=== PATIENT | female | born 1975 | race Caucasian/White ===

== ENCOUNTER 2021-10-14 08:42 | Outpatient (CLI) | payer OTHER | END 2021-10-14 08:43 | disposition home or self-care (01) | LOC: CSHCT 08:42 | PROVIDERS: ATTEND Physician Assistant Medical | DX: R10.32 Left lower quadrant pain (principal); R10.33 Periumbilical pain; R19.7 Diarrhea, unspecified; K76.9 Liver disease, unspecified; Z98.890 Other specified postprocedural states | CPT/HCPCS: 74177 ==

== ENCOUNTER 2021-10-21 14:18 | Outpatient (CLI) | payer OTHER | END 2021-10-21 14:19 | disposition home or self-care (01) | LOC: CSHMRI 14:18 | PROVIDERS: ATTEND Physician Assistant Medical | DX: K76.9 Liver disease, unspecified (principal); D18.00 Hemangioma unspecified site; R16.0 Hepatomegaly, not elsewhere classified | CPT/HCPCS: 74183 ==

== ENCOUNTER 2022-12-10 10:41 | Observation (INO) | payer BC, OTHER ==
[~2022-12-10 10:41] MED LIST: Iopamidol 300 61% 100 ML VIAL FS ONE
[2022-12-10] MEDS ORDERED: Morphine 4 MG/ML VIAL ONE ×3 (11:00→18:10)
[2022-12-10] MEDS ORDERED: Promethazine HCl 25 MG/ML VIAL ONE ×2 (11:01→18:10)
[2022-12-10 11:23] LABS: ALT (SGPT) 13 U/L (8-55); AST (SGOT) 18 U/L (5-34); Albumin 4.6 g/dL (3.5-5.0); Alkaline Phosphatase 62 U/L (40-110); Anion Gap 15 mmol/L (10-20); BUN (Urea Nitrogen) 13 mg/dL (7.0-18.7); Bilirubin, Total 0.8 mg/dL (0.2-1.2); Calc. Creatinine Clearance 0 mL/min (70-130); Calcium 9.7 mg/dL (7.8-10.44); Carbon Dioxide 27 mmol/L (22-29); Chloride 103 mmol/L (98-107); Estimated GFR 86; Globulin 2.8 g/dL (2.4-3.5); Glucose 99 mg/dL (70-105); Lipase 16 U/L (8-78); Potassium 3.6 mmol/L (3.5-5.1); Protein, Total 7.4 g/dL (6.0-8.3); Sodium 141 mmol/L (136-145)
[2022-12-10 11:35] LABS: #Eosinphils 0.1 10x3/uL (0.0-0.5); #Monocytes 0.5 10x3/uL (0.0-1.1); #Neutrophils 10.7 10x3/uL (1.5-8.4); %Basophils 0.3 % (0.0-2.0); %Eosinophils 0.8 % (0.0-6.0); %Lymphocytes 4.1 % (18.0-47.0); %Monocytes 3.9 % (0.0-10.0); %Neutrophils 90.6 % (40.0-75.0); Hemoglobin 14.1 g/dL (12.0-15.5); Mean Corpuscular HGB CONC 33.5 g/dL (32.0-36.0); Mean Corpuscular Hemoglobin 31.6 pg (27.0-33.0); Mean Corpuscular Volume 94.4 fl (81.6-98.3); Mean Platelet Volume 11.2 fl (7.4-10.4); Platelet Count 237 10x3/uL (150-450); RBC Distribution Width 12.4 % (11.5-14.5); Red Blood Cell (RBC) Count 4.46 10x6/uL (3.90-5.03); White Blood Cell (WBC) Count 11.8 10x3/uL (3.5-10.5)
[2022-12-10] MEDS ORDERED: Ketorolac Tromethamine 30 MG/ML VIAL ONE (13:11)
[2022-12-10 13:41] LABS: Bilirubin Neg (Negative); Blood, Urine 25 (Negative); Clarity Clear (Clear); Glucose, Urine (Dipstick) Normal (Negative); Ketone, Urine 15 mg/dL (Negative); Leukocyte Negative (Negative); Nitrite Negative (Negative); Protein, Urine (Dipstick) Negative (Neg-Trace); Specific Gravity, Urine 1.005 (1.005-1.030); Urobilinogen Normal mg/dL (Less than 2)
[2022-12-10 13:48] LABS: Bacteria/HPF None Seen HPF (None Seen); RBC/HPF 0-3 HPF (0-3); Squamous Epithelial 0-3 HPF (0-3); WBC/HPF None Seen HPF (0-3)
[2022-12-10] MEDS ORDERED: Ondansetron PF 4 MG/2 ML Vial ONE (15:18)
[2022-12-10] MEDS ORDERED: Electrolyte Replacement Protocol 1 EACH FS SCH (15:45)
[2022-12-10] MEDS ORDERED: Acetaminophen 325 MG TAB PO PRN (15:46)
[2022-12-10] MEDS ORDERED: Ondansetron ODT 4 MG TAB PO PRN (15:46)
[2022-12-10 16:17] LABS: Magnesium 2.1 mg/dL (1.6-2.6)
[2022-12-10 17:20] LABS: SARS-CoV-2 NAA Rapid Test Not Detected (NotDetected)
[2022-12-10] MEDS ORDERED: Piperacillin/Tazobactam 3.375 GM in Sodium Chloride 0.9% 100 ML IVPB SCH (18:00)
[2022-12-10] MEDS: Morphine 2 MG/ML VIAL SLOW IVP PRN (22:54)
[2022-12-10] MEDS: HYDROcodone/Acetaminophen 5/325 mg Tablet PO PRN (22:55)
[2022-12-10] MEDS: D5 1/2 NS w/20 mEq KCL 1,000 ML IV SCH (23:06)
[2022-12-11] MEDS: D5 1/2 NS w/20 mEq KCL 1,000 ML IV SCH ×4 (00:09→23:06)
[2022-12-11] MEDS: Piperacillin/Tazobactam 3.375 GM in Sodium Chloride 0.9% 100 ML IVPB SCH ×4 (00:09→22:52)
[2022-12-11] MEDS: HYDROcodone/Acetaminophen 5/325 mg Tablet PO PRN ×3 (04:20→20:52)
[2022-12-11] MEDS: Morphine 2 MG/ML VIAL SLOW IVP PRN ×4 (04:49→22:52)
[2022-12-11 05:23] VITALS: BMI 35.2
[2022-12-11 05:34] LABS: #Eosinphils 0.1 10x3/uL (0.0-0.5); #Monocytes 0.4 10x3/uL (0.0-1.1); %Basophils 0.5 % (0.0-2.0); %Eosinophils 2.2 % (0.0-6.0); %Lymphocytes 14.5 % (18.0-47.0); %Monocytes 9.7 % (0.0-10.0); %Neutrophils 72.9 % (40.0-75.0); Hemoglobin 10.7 g/dL (12.0-15.5); Mean Corpuscular HGB CONC 32.4 g/dL (32.0-36.0); Mean Corpuscular Hemoglobin 31.2 pg (27.0-33.0); Mean Corpuscular Volume 96.2 fl (81.6-98.3); Mean Platelet Volume 11.1 fl (7.4-10.4); Platelet Count 157 10x3/uL (150-450); RBC Distribution Width 12.8 % (11.5-14.5); Red Blood Cell (RBC) Count 3.43 10x6/uL (3.90-5.03); White Blood Cell (WBC) Count 4.1 10x3/uL (3.5-10.5)
[2022-12-11 06:02] LABS: Anion Gap 11 mmol/L (10-20); BUN (Urea Nitrogen) 10 mg/dL (7.0-18.7); Calc. Creatinine Clearance 132 mL/min (70-130); Calcium 8.2 mg/dL (7.8-10.44); Carbon Dioxide 26 mmol/L (22-29); Chloride 106 mmol/L (98-107); Estimated GFR 94; Glucose 99 mg/dL (70-105); Potassium 3.9 mmol/L (3.5-5.1); Sodium 139 mmol/L (136-145)
[2022-12-11] MEDS: Ondansetron PF 4 MG/2 ML Vial IVP PRN ×2 (12:09→17:31)
[2022-12-11] MEDS ORDERED: Ketorolac Tromethamine 30 MG/ML VIAL IVP SCH (13:30)
[2022-12-11 15:37] LABS: #Eosinphils 0.1 10x3/uL (0.0-0.5); #Monocytes 0.3 10x3/uL (0.0-1.1); #Neutrophils 1.3 10x3/uL (1.5-8.4); %Basophils 0.8 % (0.0-2.0); %Lymphocytes 31.1 % (18.0-47.0); %Monocytes 12.4 % (0.0-10.0); %Neutrophils 51.3 % (40.0-75.0); Hemoglobin 10.8 g/dL (12.0-15.5); Mean Corpuscular HGB CONC 32.8 g/dL (32.0-36.0); Mean Corpuscular Hemoglobin 31.7 pg (27.0-33.0); Mean Corpuscular Volume 96.5 fl (81.6-98.3); Mean Platelet Volume 11.7 fl (7.4-10.4); Platelet Count 160 10x3/uL (150-450); RBC Distribution Width 12.6 % (11.5-14.5); Red Blood Cell (RBC) Count 3.41 10x6/uL (3.90-5.03); White Blood Cell (WBC) Count 2.5 10x3/uL (3.5-10.5)
[2022-12-11 16:08] LABS: ALT (SGPT) 39 U/L (8-55); AST (SGOT) 42 U/L (5-34); Albumin 3.4 g/dL (3.5-5.0); Alkaline Phosphatase 68 U/L (40-110); Anion Gap 9 mmol/L (10-20); BUN (Urea Nitrogen) 7 mg/dL (7.0-18.7); Bilirubin, Total 0.9 mg/dL (0.2-1.2); Calc. Creatinine Clearance 134 mL/min (70-130); Calcium 8.2 mg/dL (7.8-10.44); Carbon Dioxide 27 mmol/L (22-29); Chloride 106 mmol/L (98-107); Estimated GFR 95; Globulin 2.1 g/dL (2.4-3.5); Glucose 99 mg/dL (70-105); Potassium 3.7 mmol/L (3.5-5.1); Protein, Total 5.5 g/dL (6.0-8.3); Sodium 138 mmol/L (136-145)
[2022-12-11] MEDS ORDERED: Bisacodyl 10 MG SUPP PR PRN (20:07)
[2022-12-11] MEDS: Famotidine/PF 20 mg/2ml Vial SLOW IVP SCH (20:52)
[2022-12-11] MEDS ORDERED: Loperamide HCl 1 MG/7.5 ML UDCUP PO SCH (23:30)
[2022-12-12] MEDS: HYDROcodone/Acetaminophen 5/325 mg Tablet PO PRN ×3 (02:07→09:39)
[2022-12-12 05:14] LABS: Hemoglobin 9.9 g/dL (12.0-15.5); Mean Corpuscular HGB CONC 32.7 g/dL (32.0-36.0); Mean Corpuscular Hemoglobin 31.7 pg (27.0-33.0); Mean Corpuscular Volume 97.1 fl (81.6-98.3); Mean Platelet Volume 11.3 fl (7.4-10.4); Platelet Count 139 10x3/uL (150-450); RBC Distribution Width 12.8 % (11.5-14.5); Red Blood Cell (RBC) Count 3.12 10x6/uL (3.90-5.03); White Blood Cell (WBC) Count 2.6 10x3/uL (3.5-10.5)
[2022-12-12 05:18] LABS: Anion Gap 10 mmol/L (10-20); BUN (Urea Nitrogen) 5 mg/dL (7.0-18.7); Calc. Creatinine Clearance 134 mL/min (70-130); Calcium 7.9 mg/dL (7.8-10.44); Carbon Dioxide 25 mmol/L (22-29); Chloride 112 mmol/L (98-107); Estimated GFR 95; Glucose 100 mg/dL (70-105); Sodium 143 mmol/L (136-145)
[2022-12-12] MEDS: Piperacillin/Tazobactam 3.375 GM in Sodium Chloride 0.9% 100 ML IVPB SCH (05:28)
[2022-12-12] MEDS: Morphine 2 MG/ML VIAL SLOW IVP PRN (05:29)
[2022-12-12 06:22] LABS: MDiff Complete? YES
[2022-12-12 06:26] LABS: Band 2 % (5-11); Eosinophils 2 % (0-10); Lymphocytes 33 % (21-51); Monocytes 13 % (0-10); Neutrophil 49 % (42-75); Promyelocytes 1 % (0-0)
[2022-12-12 06:27] LABS: Platelet Morphology Comment Appears Decreased; RBC Morphology Normal
[2022-12-12] MEDS: Ondansetron PF 4 MG/2 ML Vial IVP PRN (06:38)
[2022-12-12] MEDS: D5 1/2 NS w/20 mEq KCL 1,000 ML IV SCH (06:39)
[2022-12-12] MEDS: Famotidine/PF 20 mg/2ml Vial SLOW IVP SCH (08:02)
[2022-12-12] MEDS ORDERED: Saccharomyces boulardii 250 MG CAP PO SCH (09:00)
[2022-12-12 09:35] VITALS: BP 106/71; TEMP 97.9
== END 2022-12-12 12:35 | disposition home or self-care (01) ==
LOC: SUATTDRO 10:41 → EEVIPCON 10:41 → CSHERS 10:41 → CSHTELE 17:18 → INTOOBSV 17:18
PROVIDERS: ADMIT Internal Medicine; ATTEND Internal Medicine
DX: R10.31 Right lower quadrant pain (principal); D72.829 Elevated white blood cell count, unspecified; R11.2 Nausea with vomiting, unspecified; K58.1 Irritable bowel syndrome with constipation; Z85.038 Personal history of other malignant neoplasm of large intestine; Z20.822 Contact with and (suspected) exposure to COVID-19; Z79.899 Other long term (current) drug therapy; Z90.49 Acquired absence of other specified parts of digestive tract; Z88.8 Allergy status to other drugs, medicaments and biological substances
CPT/HCPCS: 36415; 74177; 76856; 80048; 80053; 81003; 81015; 83605; 83690; 83735; 85025; 87040; 87324; 87449; 94760; 96361; 96365; 96366; 96375; 96376; G0378; J1885; J2270; J2272; J2405; J2543; J2550; J3480; J3490; Q0162; Q9967; S0028; U0002

== ENCOUNTER 2022-12-12 16:58 | Outpatient (CLI) | payer BC | END 2022-12-12 16:59 | disposition home or self-care (01) | LOC: CSHCT 16:58 | PROVIDERS: ATTEND Surgery | DX: R10.9 Unspecified abdominal pain (principal); N20.0 Calculus of kidney | CPT/HCPCS: 74176 ==